=== PATIENT | female | born 1995 | race Two or more races ===

== ENCOUNTER 2023-07-27 15:06 | Outpatient (CLI) | payer OTHER | END 2023-07-27 15:12 | disposition home or self-care (01) | LOC: RAD 15:06 | DX: R07.9 Chest pain, unspecified (principal) ==

== ENCOUNTER 2023-07-27 15:39 | Outpatient (CLI) | payer OTHER ==
[2023-07-27 16:18] LABS: HEMATOCRIT 39.4 % (36.0-45.00); HEMOGLOBIN 13.5 g/dL (12.0-15.00); MEAN CELL VOLUME 83.8 fL (80.00-100.00); MEAN CORPUSCULAR HEMOGLOBIN 28.8 pg (27.00-32.0); MEAN CORPUSCULAR HGB CONC 34.4 g/dl (32.0-36.0); PLATELET COUNT 346 K/uL (150-450); RED BLOOD COUNT 4.69 M/uL (4.00-6.00); RED CELL DISTRIBUTION WIDTH 12.9 % (11.5-14.5)
== END 2023-07-27 15:40 | disposition home or self-care (01) ==
LOC: LAB 15:39
DX: R05.1 Acute cough (principal); Z20.822 Contact with and (suspected) exposure to COVID-19; Z20.828 Contact with and (suspected) exposure to other viral communicable diseases; R05.8 Other specified cough; J06.9 Acute upper respiratory infection, unspecified; A49.3 Mycoplasma infection, unspecified site; R50.9 Fever, unspecified; J11.1 Influenza due to unidentified influenza virus with other respiratory manifestations

== ENCOUNTER 2024-08-20 10:36 | Emergency (ER) | payer OTHER ==
[~2024-08-20] VITALS: Ht 170.2 cm; Wt 77.1 kg
== END 2024-08-20 11:51 | disposition home or self-care (01) ==
LOC: ER 10:38
DX: J03.90 Acute tonsillitis, unspecified (principal); Z91.010 Allergy to peanuts; Z88.8 Allergy status to other drugs, medicaments and biological substances